=== PATIENT | male | born 1955 | race Caucasian/White ===

== ENCOUNTER 2021-09-01 14:00 | Outpatient (RCR) | payer MEDICAID, SELFPAY | END 2021-10-05 23:59 | disposition home or self-care (01) | LOC: ANHBWCAUD 14:00 | PROVIDERS: PCP Nurse Practitioner; Visit Provider Nurse Practitioner | DX: Z46.1 Encounter for fitting and adjustment of hearing aid (principal) | CPT/HCPCS: 99199; V5160; V5261; V5264 ==

== ENCOUNTER 2021-12-25 12:48 | Outpatient (RCR) | payer MEDICAID, SELFPAY | END 2022-03-25 23:59 | disposition home or self-care (01) | LOC: ANHBWCAUD 12:48 | PROVIDERS: PCP Nurse Practitioner; Visit Provider Nurse Practitioner | DX: Z46.1 Encounter for fitting and adjustment of hearing aid (principal) | CPT/HCPCS: 99199 ==